=== PATIENT | female | born 1945 | race Caucasian/White ===

== ENCOUNTER 2016-12-25 18:31 | Emergency (ER) | payer OTHER ==
--- NOTE | 2016-12-25 19:43 | ED Physician Documentation ---
Fall - HISTORIAN Historian: patient, friend - HPI Stated Complaint: lac Chief Complaint: Fall Additional Information: tripped fell on lt hand and chin cement slight bruise hand .8cm sup lac point chin. denies head neck et al problems Onset: just prior to arrival, hours (1829) Where: park Context: tripped r: mild Associated Symptoms:: no loss of consciousness Location of Pain/Injury: upper back, mid back, lower back, upper extremity (hand ). denies: head, neck Injury to Right Extremity: none Injury to Left Extremity: none - ROS CONST: no problems NEURO: denies: dizziness, anxiety, depression MS/SKIN/LYMPH: denies: weakness, numbness, neck pain, back pain EYES/ENT: denies: problems with vision CVS/RESP: none. denies: chest pain, shortness of breath, palpitations - PAST HX Past History: none Immunizations: UTD Allergies/Adverse Reactions: Allergies Allergy/AdvReac Type Severity Reaction Status Date / Time No Known Allergies Allergy Verified 12/25/16 19:01 Home Medications: Ambulatory Orders Medication Instructions Recorded Bupropion HCl [Wellbutrin] 75 mg PO D 12/25/16 Fluoxetine HCl [Prozac] 20 mg PO D 12/25/16 Omeprazole [Prilosec] 10 mg PO D 12/25/16 Simvastatin [Zocor] 20 mg PO D 12/25/16 - SOCIAL HX Smoking History: non-smoker Alcohol Use: none Drug Use: none - FAMILY HX Family History: no significant history - VITAL SIGNS Vital Signs: Vital Signs Temp Pulse Resp BP Pulse Ox 98.2 F 72 16 161/95 97 12/25/16 18:31 12/25/16 18:31 12/25/16 18:31 12/25/16 18:31 12/25/16 18:31 - REVIEWED ASSESSMENTS Nursing Assessment Reviewed: Yes Vitals Reviewed: Yes Procedures Wound Location: other (.8cm sup lac chin) Wound's Depth, Shape: irregular Wound Explored: no foreign body removed Betadine Prep?: Yes Wound Repaired With: Dermabond Fall Physical Exam - Physical Exam General Appearance: mild distress Head: non-tender, no swelling, no obvious injury Neck: non-tender, painless ROM, trachea midline Eye: SEUN, EOMI ENT: nml external inspection Resp/CVS: chest non-tender, breath sounds nml, no resp. distress, heart sounds nml Abdomen: soft, non-tender Neuro: oriented x3, sensation nml, motor nml, mood/affect nml Skin: color nml, no rash. No: cyanosis, diaphoresis Joint: joints nml - Nisa Coma Score Eyes Open: Spontaneous Speech: Oriented Motor: Obeys Commands Discharge Clincal Impression: fall, lac chin, hand bruise Referrals: Primary Doctor,No [Primary Care Provider] - 2 Days Home Medications: Ambulatory Orders Bupropion HCl [Wellbutrin] 75 mg PO D 12/25/16 Fluoxetine HCl [Prozac] 20 mg PO D 12/25/16 Omeprazole [Prilosec] 10 mg PO D 12/25/16 Simvastatin [Zocor] 20 mg PO D 12/25/16 Comments: octybond Condition: Good Disposition: 01 HOME, SELF-CARE Decision to Admit: NO Decision Time: 19:47
[2016-12-25 20:10] VITALS: BP 125/57
== END 2016-12-25 19:43 | disposition home or self-care (01) ==
LOC: ED 18:31
DX: S01.81XA Laceration without foreign body of other part of head, initial encounter (principal); S60.229A Contusion of unspecified hand, initial encounter; W19.XXXA Unspecified fall, initial encounter; Y93.9 Activity, unspecified; Y99.9 Unspecified external cause status
CPT/HCPCS: 12011; 99283